=== PATIENT | female | born 1955 | race Caucasian/White ===

== ENCOUNTER 2020-02-17 16:26 | Emergency (ER) | payer OTHER, SELFPAY ==
[2020-02-17 17:30] VITALS: BP 109/78; PULSE 77; RESP 18; TEMP 36.6; O2SAT 98; BMI 30.2
--- NOTE | 2020-02-17 17:45 | HMH.EDUTC ---
[facility] [place] Clinical Impression: Encounter for laboratory testing for COVID-19 virus Disposition: Home, Self-Care Condition on Discharge: Good Instructions: DI for COVID-19 (Suspected or Confirmed ), Coronavirus Disease 2019, Preventing the Spread of Coronavirus Discharge Instructions Additional Instructions: *Monitor Temp, Over the counter Motrin or Tylenol as directed/as needed Tylenol every 4 hours and Motrin every 6 hours (as long as your family doctor has told you that you can take it) for fever or pain. and straight to ER if unable to lower temp less than 101.0 after medication given Follow up IMMEDIATELY for new or worsening symptoms or no Noticeable improvement over the next 48-72 hours. 911 for difficulty breathing or swallowing You were tested for today for COVID19 your test result should be back in the next 24-48 hours, you may call to the [facility] to see if your test results are back in the next 48 hours [phone] [facility] hours are 9am-9pm You was given a handout with instructions for Self Quarantine and Self isolation for while you wait on test results and what to do if they are positive If you are positive the Health Dept will be contacting you also Referrals: Salvador Barton MD [Primary Care Provider] - As needed Forms: Work/School Release Time of Disposition: 17:47 Medical Decision Making - Fredy Inquiry Pt receiving controlled substance: No Fredy was queried for this patient: No Vital Signs: 02/17/20 17:30 Temperature 97.8 F Temperature Source Oral Pulse Rate [Right Brachial] 77 Respiratory Rate 18 Blood Pressure [Right Arm] 109/78 L Blood Pressure Mean [Right Arm] 88 Blood Pressure Source [Right Arm] Automatic Cuff Blood Pressure Position [Right Arm] Sitting 02 Sat by Pulse Oximetry 98 Orders (Tests/Meds): ORDERS Category Date Time Status Covid-19 Nasal PCR ([facility]) Routine Lab 02/17/20 17:27 Ordered [facility] [place] HPI - General Stated complaint: cov test Time Seen by Provider: 02/17/20 17:45 Mode of Arrival: Ambulatory Limitations: No Limitations Description of Symptoms (Recalled from Triage Doc. by RN): COVID TEST D/T EXPOSURE; DENIES SYMPTOMS HEENT Symptoms (Recalled from RN notes): No Resp Symptoms (Recalled from RN notes): No Skin Symptoms (Recalled from RN notes): No MS Symptoms (Recalled from RN notes): No Functional Status (Recalled from RN notes): WNL - History of Present Illness Provider Complaint: Patient states that she was around her son last week that tested positive yesterday for COVID States that she isnt having any symptoms but due to close exposure she wanted to get tested - Related Data Home Medications Medication Instructions Recorded Confirmed No Known Home Medications 03/22/17 03/22/17 Allergies Allergy/AdvReac Type Severity Reaction Status Date / Time Penicillins Allergy Verified 02/17/20 17:44 Sulfa (Sulfonamide Allergy Verified 02/17/20 17:44 Antibiotics) - Worker's Comp Is this a Worker's Comp case?: No [facility] History - Hepatitis A Screen Drug use history?: No High risk sexual behaviors?: No History of sexually transmitted infection?: No Currently employed?: No Childcare worker?: No Do you have indoor plumbing?: Yes Do you have electricity?: Yes Attestation statement:: This patient has been screened for Hepatitis A risk factors. I have reviewed the patient's past medical history: Yes Laterality Cases: Bilateral: Tonsillectomy Other Surgeries: Yes: Tubal Ligation - Social History Smoking Status: Never smoker Alcohol Intake: never Occupational Status: other Family Hx:: Coronary Artery Disease, Heart Attack, Diabetes ROS Obtained: Yes All systems reviewed & no additional complaints, Yes Systems reviewed as appropriate & no additional complaints - Constitutional Constitutional: Reports system reviewed and no additional complaints, except as docu, Denies body ache, Denies chills, Denies daytime sleepiness, Denies feve
[2020-02-17 17:54] VITALS: BP 109/78; PULSE 77; RESP 18; TEMP 36.6; O2SAT 98
== END 2020-02-17 17:55 | disposition home or self-care (01) ==
PROVIDERS: Emergency Provider Nurse Practitioner; PCP Family Medicine
DX: Z88.0 Allergy status to penicillin; Z88.2 Allergy status to sulfonamides; Z20.828 Contact with and (suspected) exposure to other viral communicable diseases
CPT/HCPCS: 99202; G0463; U0003

== ENCOUNTER → 2020-10-27 09:53 | Outpatient (POV) | payer OTHER, SELFPAY | PROVIDERS: Visit Provider Dermatology | DX: Z00.00 Encounter for general adult medical examination without abnormal findings (principal) ==

== ENCOUNTER → 2021-01-15 09:19 | Outpatient (CLI) | payer OTHER, SELFPAY | PROVIDERS: Visit Provider Ophthalmology | DX: Z01.812 Encounter for preprocedural laboratory examination (principal); Z20.822 Contact with and (suspected) exposure to COVID-19 | CPT/HCPCS: C9803; U0003; U0005 ==

== ENCOUNTER 2024-07-15 16:33 | Observation (INO) | payer MEDICARE, SELFPAY ==
[2024-07-15] VITALS (8 sets, daily range): BP systolic 150–187; BP diastolic 76–92; PULSE 64–95; RESP 14–22; TEMP 36.3–37.8; O2SAT 94–99; BMI 29.2; BMI 35.9
--- NOTE | 2024-07-15 16:48 | HMH.EDGENADL ---
Discharge Plan Disposition Patient Disposition: Admitted Condition: Good Clinical Impressions Clinical Impression: Sepsis without septic shock, Enteritis, Urinary tract infection in female Discharge ED Provider: José Antonio Crockett Adult HPI <AYESHA Gao - Last Filed: 07/15/24 20:22> General Chief complaint: Weakness Stated complaint: unstead gait,back pain,diarrhea,stomach pain Time Seen by Provider: 07/15/24 16:48 History of Present Illness HPI narrative: Patient presents for evaluation of of 3 days of nausea vomiting diarrhea. Patient states that she has had tender posterior count watery bowel movements along with abdominal pain she describes as cramping and today has had difficulty with walking. She denies any chest pain shortness of breath fever chills hemoptysis hematochezia melena hematemesis hematuria. She denies any flank pain or back pain.. Related Data Home Medications ?Medication ?Instructions ?Recorded ?Confirmed No Known Home Medications 03/22/17 07/15/24 Allergies Allergy/AdvReac Type Severity Reaction Status Date / Time Penicillins Allergy Verified 07/15/24 15:56 Sulfa (Sulfonamide Allergy Verified 07/15/24 15:56 Antibiotics) PFSH <AYESHA Gao - Last Filed: 07/15/24 20:22> [facility] Disclaimer: The information contained in this section may have been updated after the patient was seen, as this information can be updated by other users. Medical History (Updated 07/15/24 @ 22:55 by Johan Marcelo APRN) Encounter for laboratory testing for COVID-19 virus Prediabetes Skin cancer Surgical History (Updated 07/15/24 @ 22:42 by Johan Marcelo APRN) H/O oophorectomy Hx of tonsillectomy Social History Smoking Status: Former smoker alcohol intake: never current occupational status: other Travel in the last 8 weeks?: None Have you lived/traveled outside [place] in past 30 days?: No Contact w/someone who lives/traveled outside US past 30 days?: No Exposure to someone with infectious disease in past 14 days?: No Do you have a fever (greater than 100.4 F or 38 C)?: No Have you tested positive for COVID-19?: No Exposed to someone with COVID-19 in past 14 days?: No Do you have a sore throat?: No Do you have a cough?: No Do you have any weakness?: No Do you have any diarrhea?: No Are you experiencing any unusual bleeding?: No Do you have any muscle aches/pain?: No Do you have any abdominal pain?: No Are you experiencing loss of taste or smell?: No Other Medical History Have you received the Flu Vaccine for this season: No <AYESHA Gao - Last Filed: 07/15/24 20:22> ROS Obtained: Yes Systems reviewed as appropriate & no additional complaints except as documented Physical Exam <AYESHA Gao - Last Filed: 07/15/24 20:22> General General appearance: alert and in no apparent distress Respiratory Respiratory exam: Present normal lung sounds bilaterally Cardiovascular Cardiovascular exam: Present regular rate Neurological Exam Neurological exam: Present alert and oriented X3 Medical Decision Making <AYESHA Gao - Last Filed: 07/15/24 20:22> Medical Records Medical records reviewed: Yes I reviewed the patient's medical records. Screening: Per USPSTF and CDC recommendations, given the prevalence of disease in our region, it is our hospital?s policy to screen for HIV and viral Hepatitis for all patients aged 18 and over and those with ongoing risk factors. Fredy Inquiry Pt receiving controlled substance: No Vital Signs: 07/15/24 16:56 07/15/24 17:02 07/15/24 18:30 Temperature 100.0 F H Temperature Source Oral Pulse Rate 88 78 Pulse Rate [Left Radial] 95 H Respiratory Rate 19 21 22 Blood Pressure 183/92 H 166/80 H Blood Pressure [Right Arm] 187/89 H Blood Pressure Mean [Right Arm] 121 02 Sat by Pulse Oximetry 97 96 96 Oxygen Delivery Method Room Air Room Air 07/15/24 19:15 07/15/24 20:31 07/15/24 21:12 Temperature 97.6 F Temperature Source Oral Pulse Rate 74 68 68 Pulse Rate [Left Radial] Respiratory Rate 20 17 14 Blood Pressure 173/88 H 163/76 H Blood Pressure [Right Arm] Blood Pressure Mean [Right Arm] 02 Sat by Pulse Oximetry 94 L 97 Oxygen Delivery Method Room Air 07/15/24 21:13 Temperature 97.8 F Temperature Source Oral Pulse Rate 64 Pulse Rate [Left Radial] Respiratory Rate 18 Blood Pressure 163/76 H Blood Pressure [Right Arm] Blood Pressure Mean [Right Arm] 02 Sat by Pulse Oximetry Oxygen Delivery Method Room Air Lab Data Lab results reviewed: Yes I reviewed the patient's lab results. Lab Results 07/15/24 17:31: WBC 15.5 H, RBC 4.03 L, Hgb 12.4, Hct 37.2, MCV 92.3, MCH 30.8, MCHC 33.3, RDW 13.6, Plt Count 251, MPV 10.8 H, Neut % (Auto) 89.6 H, Lymph % (Auto) 4.4 L, Taliaferro % (Auto) 3.8, Eos % (Auto) 0.6, Baso % (Auto) 0.4, Neut # (Auto) 13.9 H, Lymph # (Auto) 0.7, Taliaferro # (Auto) 0.6, Eos # (Auto) 0.1, Baso # (Auto) 0.1, ESR 56 H, Sodium 134 L, Potassium 3.2 L, Chloride 102, Carbon Dioxide 17 L, Anion Gap 18.2 H, BUN 24 H, Creatinine 1.30 H, Estimated Creat Clear 46, Estimated GFR 41 L, Est GFR ( Amer) 49 L, Glucose 124 H, Lactate 1.5, Calcium 9.5, Magnesium 2.1, Total Bilirubin 0.8, AST 46 H, ALT 33, Alkaline Phosphatase 70, C-Reactive Protein 426.6 H, Total Protein 8.2, Albumin 4.3, Globulin 3.9 H, Albumin/Globulin Ratio 1.1, Lipase 53, Procalcitonin 6.55 H, HCV Ab JOESPH w/Rflx PCR Qn Negative, HIV Ag/Ab Combo Qual Negative 07/15/24 19:37: Urine Color Yellow, Urine Appearance Slightly cloudy, Urine pH 6.0, Ur Specific [place] 1.020, Urine Protein 2+ A, Urine Glucose (UA) Negative, Urine Ketones 1+, Urine Blood 2+ A, Urine Nitrate Negative, Urine Bilirubin Negative, Urine Urobilinogen 0.2, Ur Leukocyte Esterase Negative, Urine RBC 5-10, Urine WBC 5-10, Ur Squamous Epith Cells 20-50, Amorphous Sediment 2+, Urine Bacteria 4+ 07/15/24 17:31 07/15/24 17:31 Orders (Tests/Meds): ED MEDICATIONS Generic Name Dose Route Start Last Admin Trade Name Freq PRN Reason Stop Dose Admin Acetaminophen 650 mg 07/15/24 20:55 Acetaminophen 325mg Tab PO 08/14/24 20:54 Q4HP PRN Fever or Mild Pain (1-3) Bismuth Subsalicylate 2 each 07/15/24 23:00 Bismuth Subsalicylate 262mg Tab PO 08/14/24 22:59 Q1HP PRN Diarrhea Ceftriaxone Sodium 1 gm/ 50 mls @ 100 mls/hr 07/15/24 20:30 07/15/24 20:33 Sodium Chloride IV 07/25/24 20:29 100 mls/hr Q24H CARLA Administration Lactated Ringer's 1,000 mls @ 125 mls/hr 07/15/24 21:00 07/15/24 21:53 Lactated Ringer's 1000 Ml Bag IV 08/14/24 20:59 125 mls/hr .Q8H CARLA Administration Levofloxacin 250 mg 07/15/24 23:00 07/15/24 23:37 Levofloxacin 250mg Tab PO 07/17/24 22:59 250 mg 1100 CARLA Administration Ondansetron HCl 4 mg 07/15/24 20:55 Ondansetron 4mg/2ml Vial IV 08/14/24 20:54 Q8HP PRN Nausea Pantoprazole Sodium 40 mg 07/15/24 21:00 07/15/24 21:53 Pantoprazole 40mg Tablet PO 08/14/24 20:59 40 mg HS CARLA Administration Sodium Chloride 10 ml 07/15/24 20:55 Sodium Chloride 0.9% 10ml Flush Syringe IV 08/14/24 20:54 NEEDED PRN Maintain IV Site Discontinued Medications Generic Name Dose Route Start Last Admin Trade Name Freq PRN Reason Stop Dose Admin Acetaminophen 1,000 mg 07/15/24 17:16 07/15/24 17:30 Acetaminophen 1,000mg/100ml Vial IV 07/15/24 17:17 1,000 mg ONCE ONE Administration Sodium Chloride 1,000 mls @ 999 mls/hr 07/15/24 17:16 07/15/24 17:31 Sod Chlor 0.9% 1000ml Bag IV 07/15/24 18:16 999 mls/hr .Q1H1M ONE Administration Sodium Chloride 1,000 mls @ 999 mls/hr 07/15/24 20:18 07/15/24 20:33 Sod Chlor 0.9% 1000ml Bag IV 07/15/24 21:18 999 mls/hr .Q1H1M ONE Administration Iopamidol 75 ml 07/15/24 18:16 07/15/24 18:16 Iopamidol-370 (76%);100ml Bottle IV 07/15/24 18:17 75 ml ONCE ONE Administration Ketorolac Tromethamine 15 mg 07/15/24 17:16 07/15/24 17:30 Ketorolac 30mg/Ml Vial IV 07/15/24 17:17 15 mg ONCE ONE Administration Ondansetron HCl 4 mg 07/15/24 17:16 07/15/24 17:31 Ondansetron 4mg/2ml Vial IV 07/15/24 17:17 4 mg ONCE ONE Administration Sodium Chloride 10 ml 07/15/24 18:16 07/15/24 18:16 Sodium Chloride 0.9% 10ml Syr (Rad Only) IV 07/15/24 18:17 10 ml ONCE ONE Administration ORDERS Category Date Time Status CT abdomen pelvis w con Stat Cat Scan 07/15/24 17:16 Completed CBC w/Auto Diff [Complete Blood Count Auto Diff] Stat Lab 07/15/24 17:31 Completed CMP [Comprehensive Metabolic Panel] Stat Lab 07/15/24 17:31 Completed CRP [C-Reactive Protein] Stat Lab 07/15/24 17:31 Completed Complete Blood Count Auto Diff AMLAB Lab 07/16/24 06:00 Ordered Comprehensive Metabolic Panel AMLAB Lab 07/16/24 06:00 Ordered Diarrhea 23 Panel, PCR Stat Lab 07/15/24 17:16 Ordered ESR [Erythrocyte Sedimentation Rate] Stat Lab 07/15/24 17:31 Completed HIV Combo Stat Lab 07/15/24 17:31 Completed Hepatitis C Ab Qual. W/ RFX Stat Lab 07/15/24 17:31 Completed Lactic Acid AMLAB Lab 07/16/24 06:00 Ordered Lactic Acid Stat Lab 07/15/24 17:31 Completed Lipase Stat Lab 07/15/24 17:31 Completed Magnesium AMLAB Lab 07/16/24 06:00 Ordered Magnesium Stat Lab 07/15/24 17:31 Completed Procalcitonin Stat Lab 07/15/24 17:31 Completed UA [Urinalysis and Microscopic] Stat Lab 07/15/24 19:37 Completed Blood Culture Stat Micro 07/15/24 20:30 Received Urine Culture Stat Micro 07/15/24 19:37 Received Tissue Perfus/Sepsis Re-Eval Sepsis Re-Evaluation Performed: Yes Date Performed: 07/15/24 Time Performed: 19:51 Medical Decision Narrative: In summary patient is a 69-year-old female who presents to the emergency department for evaluation of nausea vomiting and abdominal pain. Patient is initially hypertensive with a blood pressure 187/89 with a heart rate of 95 sinus rhythm on the bedside monitor breathing 19 times a minute satting at 97% on room air upon arrival, with a temperature of 100. Physical exam reveals a well-nourished well-developed 69-year-old female who otherwise in no acute distress. Breath sounds critical bilateral to the bases without adventitious sounds. Cardiovascular is S1-S2 rapid regular rate rhythm without murmurs, rubs or thrills. Abdomen soft diffusely mildly tender to palpation with no rebound or guarding or rigidity. Bowel sounds hyperactive. Patient has no CVA tenderness to percussion.. Differential diagnosis includes enteritis versus electrolyte abnormality versus colitis versus diverticulitis etc. Initial workup will be conducted with hematologic labs urine diarrhea panel CT scan abdomen pelvis. Initial interventions include crystalloid bolus Toradol Tylenol and Zofran. Initial workup reviewed by me patient has a white count of 15.5 hemoglobin hematocrit 12.4 and 37.2 respectively with an absolute neutrophil count of 13.9 sed rate is 56, sodium 134 potassium is 3.2 CO2 is 17 gap is 18.2 BUN is 24 creatinine is 1.3 GFR is 41 AST is 46 CRP is 426.6 procalcitonin is 6.55 and my informal interpretation of her CT scan abdomen pelvis shows hydroureter at the proximal right kidney and fluid-filled small bowel consistent with enteritis prior to radiology read. Urinalysis is consistent with a urinary tract infection with 5-10 red blood cells 5-10 white cells 20-50 epithelial cells and 4+ bacteria. Given her findings I am concern for urosepsis without septic shock. She was given an additional fluid bolus for the sepsis as well as blood cultures and started on Rocephin IV. Given this I had an interactive discussion with hospital medicine regarding patient workup and management and she will be admitted for further evaluation and care <José Antonio Crockett MD - Last Filed: 07/15/24 23:44> Vital Signs: 07/15/24 16:56 07/15/24 17:02 07/15/24 18:30 Temperature 100.0 F H Temperature Source Oral Pulse Rate 88 78 Pulse Rate [Left Radial] 95 H Respiratory Rate 19 21 22 Blood Pressure 183/92 H 166/80 H Blood Pressure [Right Arm] 187/89 H Blood Pressure Mean [Right Arm] 121 02 Sat by Pulse Oximetry 97 96 96 Oxygen Delivery Method Room Air Room Air 07/15/24 19:15 07/15/24 20:31 07/15/24 21:12 Temperature 97.6 F Temperature Source Oral Pulse Rate 74 68 68 Pulse Rate [Left Radial] Respiratory Rate 20 17 14 Blood Pressure 173/88 H 163/76 H Blood Pressure [Right Arm] Blood Pressure Mean [Right Arm] 02 Sat by Pulse Oximetry 94 L 97 Oxygen Delivery Method Room Air 07/15/24 21:13 Temperature 97.8 F Temperature Source Oral Pulse Rate 64 Pulse Rate [Left Radial] Respiratory Rate 18 Blood Pressure 163/76 H Blood Pressure [Right Arm] Blood Pressure Mean [Right Arm] 02 Sat by Pulse Oximetry Oxygen Delivery Method Room Air Lab Data Lab Results 07/15/24 17:31: WBC 15.5 H, RBC 4.03 L, Hgb 12.4, Hct 37.2, MCV 92.3, MCH 30.8, MCHC 33.3, RDW 13.6, Plt Count 251, MPV 10.8 H, Neut % (Auto) 89.6 H, Lymph % (Auto) 4.4 L, Taliaferro % (Auto) 3.8, Eos % (Auto) 0.6, Baso % (Auto) 0.4, Neut # (Auto) 13.9 H, Lymph # (Auto) 0.7, Taliaferro # (Auto) 0.6, Eos # (Auto) 0.1, Baso # (Auto) 0.1, ESR 56 H, Sodium 134 L, Potassium 3.2 L, Chloride 102, Carbon Dioxide 17 L, Anion Gap 18.2 H, BUN 24 H, Creatinine 1.30 H, Estimated Creat Clear 46, Estimated GFR 41 L, Est GFR ( Amer) 49 L, Glucose 124 H, Lactate 1.5, Calcium 9.5, Magnesium 2.1, Total Bilirubin 0.8, AST 46 H, ALT 33, Alkaline Phosphatase 70, C-Reactive Protein 426.6 H, Total Protein 8.2, Albumin 4.3, Globulin 3.9 H, Albumin/Globulin Ratio 1.1, Lipase 53, Procalcitonin 6.55 H, HCV Ab JOESPH w/Rflx PCR Qn Negative, HIV Ag/Ab Combo Qual Negative 07/15/24 19:37: Urine Color Yellow, Urine Appearance Slightly cloudy, Urine pH 6.0, Ur Specific [place] 1.020, Urine Protein 2+ A, Urine Glucose (UA) Negative, Urine Ketones 1+, Urine Blood 2+ A, Urine Nitrate Negative, Urine Bilirubin Negative, Urine Urobilinogen 0.2, Ur Leukocyte Esterase Negative, Urine RBC 5-10, Urine WBC 5-10, Ur Squamous Epith Cells 20-50, Amorphous Sediment 2+, Urine Bacteria 4+ Orders (Tests/Meds): ED MEDICATIONS Generic Name Dose Route Start Last Admin Trade Name Freq PRN Reason Stop Dose Admin Acetaminophen 650 mg 07/15/24 20:55 Acetaminophen 325mg Tab PO 08/14/24 20:54 Q4HP PRN Fever or Mild Pain (1-3) Bismuth Subsalicylate 2 each 07/15/24 23:00 Bismuth Subsalicylate 262mg Tab PO 08/14/24 22:59 Q1HP PRN Diarrhea Ceftriaxone Sodium 1 gm/ 50 mls @ 100 mls/hr 07/15/24 20:30 07/15/24 20:33 Sodium Chloride IV 07/25/24 20:29 100 mls/hr Q24H CARLA Administration Lactated Ringer's 1,000 mls @ 125 mls/hr 07/15/24 21:00 07/15/24 21:53 Lactated Ringer's 1000 Ml Bag IV 08/14/24 20:59 125 mls/hr .Q8H CARLA Administration Levofloxacin 250 mg 07/15/24 23:00 07/15/24 23:37 Levofloxacin 250mg Tab PO 07/17/24 22:59 250 mg 1100 CARLA Administration Ondansetron HCl 4 mg 07/15/24 20:55 Ondansetron 4mg/2ml Vial IV 08/14/24 20:54 Q8HP PRN Nausea Pantoprazole Sodium 40 mg 07/15/24 21:00 07/15/24 21:53 Pantoprazole 40mg Tablet PO 08/14/24 20:59 40 mg HS CARLA Administration Sodium Chloride 10 ml 07/15/24 20:55 Sodium Chloride 0.9% 10ml Flush Syringe IV 08/14/24 20:54 NEEDED PRN Maintain IV Site Discontinued Medications Generic Name Dose Route Start Last Admin Trade Name Kathia PRN Reason Stop Dose Admin Acetaminophen 1,000 mg 07/15/24 17:16 07/15/24 17:30 Acetaminophen 1,000mg/100ml Vial IV 07/15/24 17:17 1,000 mg ONCE ONE Administration Sodium Chloride 1,000 mls @ 999 mls/hr 07/15/24 17:16 07/15/24 17:31 Sod Chlor 0.9% 1000ml Bag IV 07/15/24 18:16 999 mls/hr .Q1H1M ONE Administration Sodium Chloride 1,000 mls @ 999 mls/hr 07/15/24 20:18 07/15/24 20:33 Sod Chlor 0.9% 1000ml Bag IV 07/15/24 21:18 999 mls/hr .Q1H1M ONE Administration Iopamidol 75 ml 07/15/24 18:16 07/15/24 18:16 Iopamidol-370 (76%);100ml Bottle IV 07/15/24 18:17 75 ml ONCE ONE Administration Ketorolac Tromethamine 15 mg 07/15/24 17:16 07/15/24 17:30 Ketorolac 30mg/Ml Vial IV 07/15/24 17:17 15 mg ONCE ONE Administration Ondansetron HCl 4 mg 07/15/24 17:16 07/15/24 17:31 Ondansetron 4mg/2ml Vial IV 07/15/24 17:17 4 mg ONCE ONE Administration Sodium Chloride 10 ml 07/15/24 18:16 07/15/24 18:16 Sodium Chloride 0.9% 10ml Syr (Rad Only) IV 07/15/24 18:17 10 ml ONCE ONE Administration ORDERS Category Date Time Status CT abdomen pelvis w con Stat Cat Scan 07/15/24 17:16 Completed CBC w/Auto Diff [Complete Blood Count Auto Diff] Stat Lab 07/15/24 17:31 Completed CMP [Comprehensive Metabolic Panel] Stat Lab 07/15/24 17:31 Completed CRP [C-Reactive Protein] Stat Lab 07/15/24 17:31 Completed Complete Blood Count Auto Diff AMLAB Lab 07/16/24 06:00 Ordered Comprehensive Metabolic Panel AMLAB Lab 07/16/24 06:00 Ordered Diarrhea 23 Panel, PCR Stat Lab 07/15/24 17:16 Ordered ESR [Erythrocyte Sedimentation Rate] Stat Lab 07/15/24 17:31 Completed HIV Combo Stat Lab 07/15/24 17:31 Completed Hepatitis C Ab Qual. W/ RFX Stat Lab 07/15/24 17:31 Completed Lactic Acid AMLAB Lab 07/16/24 06:00 Ordered Lactic Acid Stat Lab 07/15/24 17:31 Completed Lipase Stat Lab 07/15/24 17:31 Completed Magnesium AMLAB Lab 07/16/24 06:00 Ordered Magnesium Stat Lab 07/15/24 17:31 Completed Procalcitonin Stat Lab 07/15/24 17:31 Completed UA [Urinalysis and Microscopic] Stat Lab 07/15/24 19:37 Completed Blood Culture Stat Micro 07/15/24 20:30 Received Urine Culture Stat Micro 07/15/24 19:37 Received Medical Decision Narrative: In summary patient is a 69-year-old female who presents to the emergency department for evaluation of nausea vomiting and abdominal pain. Patient is initially hypertensive with a blood pressure 187/89 with a heart rate of 95 sinus rhythm on the bedside monitor breathing 19 times a minute satting at 97% on room air upon arrival, with a temperature of 100. Physical exam reveals a well-nourished well-developed 69-year-old female who otherwise in no acute distress. Breath sounds critical bilateral to the bases without adventitious sounds. Cardiovascular is S1-S2 rapid regular rate rhythm without murmurs, rubs or thrills. Abdomen soft diffusely mildly tender to palpation with no rebound or guarding or rigidity. Bowel sounds hyperactive. Patient has no CVA tenderness to percussion.. Differential diagnosis includes enteritis versus electrolyte abnormality versus colitis versus diverticulitis etc. Initial workup will be conducted with hematologic labs urine diarrhea panel CT scan abdomen pelvis. Initial interventions include crystalloid bolus Toradol Tylenol and Zofran. Initial workup reviewed by me patient has a white count of 15.5 hemoglobin hematocrit 12.4 and 37.2 respectively with an absolute neutrophil count of 13.9 sed rate is 56, sodium 134 potassium is 3.2 CO2 is 17 gap is 18.2 BUN is 24 creatinine is 1.3 GFR is 41 AST is 46 CRP is 426.6 procalcitonin is 6.55 and my informal interpretation of her CT scan abdomen pelvis shows hydroureter at the proximal right kidney and fluid-filled small bowel consistent with enteritis prior to radiology read. Urinalysis is consistent with a urinary tract infection with 5-10 red blood cells 5-10 white cells 20-50 epithelial cells and 4+ bacteria. Given her findings I am concern for urosepsis without septic shock. She was given an additional fluid bolus for the sepsis as well as blood cultures and started on Rocephin IV. Given this I had an interactive discussion with hospital medicine regarding patient workup and management and she will be admitted for further evaluation and care I was consulted by the MARCIAL, and we discussed the complexity of the problems being addressed.I approved the treatment and management plan for this patient?s care in the Emergency Department, thus performing a substantive portion of the medical decision making.Signed, José Antonio Crockett MD [facility] <AYESHA Gao - Last Filed: 07/15/24 20:22> Critical Care Time Critical Care Time: Yes Attestation: On 07/15/24, the high probability of a clinically significant, sudden or life threatening deterioration of the following system(s) required my full and direct attention, intervention and personal management. The time I documented below is in addition to time spent performing reported procedures but includes the following listed in this critical care notation. Total Time Total Critical Care Time: 30
--- OUTSIDE RECORDS SUMMARY | 2024-07-15 16:53 | XMS_ITS ---
Author Organization Unknown Patient Care team information Name Category Status Period Participants - - Proposed period not known - Insurance Providers Payer name Policy type / Covera ge type Policy ID Covered republican ID Policy [place] [employer] [place] [employer]
--- NOTE | 2024-07-15 16:54 | ECG_ITS ---
APPROVED REPORT Exam: Resting ECG HR:92 bpm ECG Measurements Heart Rate 92 AXES AK 147 P 41 QRSd 104 QRS -13 QT 310 T 18 QTc 359 Conclusion SINUS RHYTHM WITH OCCASIONAL VENTRICULAR PREMATURE COMPLEXES POSSIBLE LEFT ATRIAL ENLARGEMENT [-0.1mV P-WAVE IN V1/V2] MODERATE ST DEPRESSION [0.05+ mV ST DEPRESSION] ABNORMAL ECG Electronically signed by : MAURICIO ESTRADA, 07/15/2024 23:32:13
--- NOTE | 2024-07-15 17:16 | CT_ITS ---
PROCEDURE INFORMATION: Exam: CT Abdomen And Pelvis With Contrast Exam date and time: 07/15/2024 6:15 PM Age: 69 years old Clinical indication: Abdominal pain; Additional info: Nvd abd pain TECHNIQUE: Imaging protocol: Computed tomography of the abdomen and pelvis with contrast. Total images: 310 Radiation optimization: All CT scans at this facility use at least one of these dose optimization techniques: automated exposure control; mA and/or kV adjustment per patient size (includes targeted exams where dose is matched to clinical indication); or iterative reconstruction. Contrast material: ISOVUE; Contrast volume: 75 ml; Contrast route: IV; COMPARISON: No relevant prior studies available. FINDINGS: Lungs: Lung bases are clear. Pleural spaces: Trace left pleural fluid. Heart: Normal heart size. Liver: Normal. No mass. Gallbladder and biliary ducts: Nonspecific gallbladder wall thickening with probable noncalcified gallstones. No pericholecystic edema. No biliary ductal dilatation. Pancreas: Normal. No ductal dilation. Spleen: Normal. No splenomegaly. Adrenal glands: Normal. No mass. Kidneys and ureters: 4 mm right intrarenal calculus with directly overlying cortical scarring. No hydronephrosis, perinephric fluid, or renal mass. Mild right renal pelviectasis is presumed physiologic. No ureteral stones. Unremarkable left kidney and left ureter. Stomach and bowel: Unremarkable stomach and duodenum. No ileus or bowel obstruction. Question mild bowel wall thickening referable to proximal loops of jejunum. Shallow air-fluid levels nondilated distal small bowel. Shallow scattered colonic air-fluid levels. No significant colonic wall thickening. Mild sigmoid diverticulosis without diverticulitis. Unremarkable rectum. Appendix: No evidence for appendicitis. Intraperitoneal space: Unremarkable. No free air. No significant fluid collection. Vasculature: Mild atherosclerotic vascular disease. Nonaneurysmal abdominal aorta. Numerous pelvic phleboliths. Lymph nodes: Unremarkable. No enlarged lymph nodes. Urinary bladder: Partially collapsed bladder. Reproductive: Atrophic uterus. No adnexal mass. Bones/joints: Age indeterminate but likely nonacute anterior wedging and superior endplate depression at L4. Scattered mild degenerative changes of the thoracolumbar spine. Minor lumbar levocurvature. No acute osseous abnormality. Soft tissues: Prominent varicosities anterior pelvic wall. Very tiny fat containing umbilical hernia. Notes: Mild motion limited exam with image blurring. IMPRESSION: 1. Suspect acute nonspecific enteritis. No ileus or bowel obstruction. 2. Shallow colonic air-fluid levels throughout implying diarrheal state. No convincing evidence for active colitis. 3. Mild sigmoid diverticulosis. 4. Nonspecific gallbladder wall thickening with probable noncalcified gallstones. No pericholecystic edema. If referable symptoms, follow-up ultrasound. 5. Trace left pleural fluid. 6. 4 mm nonobstructing right intrarenal calculus. 7. Additional chronic and incidental findings.
[2024-07-15] MEDS: ACETAMINOPHEN 1,000MG/100ML VIAL 1000 MG IV (17:30)
[2024-07-15] MEDS: KETOROLAC 30MG/ML VIAL 15 MG IV (17:30)
[2024-07-15] MEDS: 0.9 % SODIUM CHLORIDE 1000ML 1,000 ML 999 ML IV ×2 (17:31→20:33)
[2024-07-15] MEDS: ONDANSETRON 4MG/2ML VIAL 4 MG IV (17:31)
[2024-07-15 17:40] LABS: Basophils # 0.1 K/mm3 (0-0.2); Basophils % 0.4 % (0.1-2.0); Eosinophils # 0.1 Kmm3 (0.0-0.4); Eosinophils % 0.6 % (0.1-12.0); Hematocrit 37.2 % (37.0-47.0); Hemoglobin 12.4 g/dL (12.2-16.2); Immature Granulocytes # 0.19 10^3uL; Immature Granulocytes % 1.2 %; Lymphocytes # 0.7 K/mm3 (0.7-4.5); Lymphocytes % 4.4 % (10-50); Mean Corpuscular HGB Conc 33.3 g/dL (31.8-35.4); Mean Corpuscular Hemoglobin 30.8 pg (27.0-31.2); Mean Corpuscular Volume 92.3 fl (81-99); Mean Platelet Volume 10.8 fl (7.4-10.4); Monocytes # 0.6 K/mm3 (0.1-1.0); Monocytes % 3.8 % (1.7-9.3); Neutrophils # 13.9 K/mm3 (1.8-7.8); Neutrophils % 89.6 % (37.0-80.0); Nucleated Red Blood Cells # 0 10^3/uL; Nucleated Red Blood Cells % 0 %; Platelet Count 251 K/mm3 (142-424); Red Blood Count 4.03 M/mm3 (4.20-5.40); Red Cell Distribution Width 13.6 % (11.5-17.5); Red Cell Distribution Width-SD 46.4 fL; White Blood Count 15.5 K/mm3 (4.8-10.8)
[2024-07-15 17:50] LABS: Alanine Aminotransferase 33 U/L (12-78); Albumin Level 4.3 g/dl (3.5-5.0); Albumin/Globulin Ratio 1.1 (1.1-1.8); Alkaline Phosphatase 70 U/L (38-126); Anion Gap 18.2 mEq/L (5-15); Aspartate Amino Transferase 46 U/L (14-36); Bilirubin,Total 0.8 mg/dl (0.2-1.3); Blood Urea Nitrogen 24 mg/dl (7-17); Calcium 9.5 mg/dl (8.4-10.2); Carbon Dioxide 17 mmol/L (22.0-30.0); Chloride 102 mmol/L (98-107); Creatinine Clearance Estimated 46 mL/min (50-200); Estimated Glomerular Filt Rate 41 ml/min (>60); GFR (African American) 49 ML/MIN (>60); Globulin 3.9 g/dL (1.3-3.2); Glucose 124 mg/dl (74-100); Lipase 53 U/L (23-300); Magnesium 2.1 mg/dl (1.6-2.3); Potassium 3.2 mmoL/L (3.5-5.1); Sodium 134 mmol/L (136-145); Total Protein,Serum 8.2 g/dl (6.3-8.2)
[2024-07-15 17:55] LABS: Lactic Acid 1.5 mmol/L (0.7-2.1)
[2024-07-15 18:09] LABS: Procalcitonin 6.55 ng/mL (0.0-2.0)
[2024-07-15 18:10] LABS: Erythrocyte Sedimentation Rate 56 mm/hr (0-30)
[2024-07-15 18:11] LABS: C-Reactive Protein 426.6 mg/L (0-4)
--- NOTE | 2024-07-15 18:11 | PC.NURSE ---
pt going for CT at this time
[2024-07-15] MEDS: IOPAMIDOL-370 (76%);100ML BOTTLE 75 ML IV (18:16)
[2024-07-15] MEDS: SODIUM CHLORIDE 0.9% 10ML SYR (RAD ONLY) 10 ML IV (18:16)
[2024-07-15 18:41] LABS: HIV Combo NEGATIVE (Negative)
[2024-07-15 18:49] LABS: Hepatitis C Ab Qual. W/ RFX NEGATIVE (Negative)
[2024-07-15 19:43] LABS: Blood, Urine 2+ (Negative); Color,Urine YELLOW (Yellow); Glucose,Urine (UA) Negative (Negative); Ketones,Urine 1+ (Negative); Leukocyte Esterase,Urine Negative (Negative); Microscopic, Urine URINE MICROSCOPIC (MICROSCOPIC); Nitrate,Urine Negative (Negative); Protein,Urine 2+ (Negative); Urobilinogen,Urine 0.2 EU/dl (0.2)
[2024-07-15 19:55] LABS: Appearance,Urine Slightly Cloudy (Clear); Bilirubin,Urine Negative (Negative)
[2024-07-15 20:11] LABS: Amorphous Sediment,Urine 2+ /lpf; Bacteria,Urine 4+ /lpf; Squamous Epithelial Cell,Urine 20-50 #/hpf (0-5)
[2024-07-15] MEDS: CEFTRIAXONE 1 GM 1 GM in 0.9 % SODIUM CHLORIDE 50 ML IV (20:33)
--- NOTE | 2024-07-15 21:10 | P.HP_ITS ---
<Statement entered by Tyson Strickland MD - 07/22/24 17:49> Personally evaluated the patient and agree with the plan of care as outlined by the [facility]. History of Present Illness *Admission Date: 07/15/24 *Reason for visit:: Nausea and vomiting for 3 days dehydration *History of present illness: This 69-year-old female who actually looks younger than her stated age, has been ill now for 3 days with watery diarrhea and some vomiting yesterday., Feeling very weak having trouble with walking at this time. Elevated white count, has not been able to give a diarrheal stool since being here so do not have a culture done yet. But patient appears awake alert oriented while laying in bed but on standing just is too weak to move so do not feel comfortable sending her at home until we get her fluid balance squared away. There is very little about her in her chart but per her has had no significant medical issues for quite some time. Medical history includes a tubal with the oophorectomy and removal of the tube on the right side as many years ago. In examining the CT of the abdomen the right kidney has a dilation of the ureter for at least 5 cm looks to be 2 to 3 cm at its largest point.(HYDRRETER), no other significant abdominal findings were noted At the present time believe this is simply infectious diarrhea but the patient has reached a point of not been able to stand well or walk well may need rehab hydration so IV fluids will be applied. Will add Pepto-Bismol and keep on clear liquid diet advanced as tolerated. Hopefully with improvement will have the patient home within 24 to 48 hours at the most. After talking with the ER provider patient showing signs of possible urinary tract infection elevated white count with weakness and unsteady gait back pain diarrhea and some abdominal pain. Also noting elevation in creatinine on labs. [facility] Disclaimer: The information contained in this section may have been updated after the patient was seen, as this information can be updated by other users. Medical History (Updated 07/15/24 @ 22:55 by Johan Marcelo APRN) Encounter for laboratory testing for COVID-19 virus Prediabetes Skin cancer Surgical History (Updated 07/15/24 @ 22:42 by Johan Marcelo APRN) H/O oophorectomy Hx of tonsillectomy Social History Smoking Status: Former smoker alcohol intake: never current occupational status: other Travel in the last 8 weeks?: None Have you lived/traveled outside [place] in past 30 days?: No Contact w/someone who lives/traveled outside [place] past 30 days?: No Exposure to someone with infectious disease in past 14 days?: No Do you have a fever (greater than 100.4 F or 38 C)?: No Have you tested positive for COVID-19?: No Exposed to someone with COVID-19 in past 14 days?: No Do you have a sore throat?: No Do you have a cough?: No Do you have any weakness?: No Do you have any diarrhea?: No Are you experiencing any unusual bleeding?: No Do you have any muscle aches/pain?: No Do you have any abdominal pain?: No Are you experiencing loss of taste or smell?: No Other Medical History Have you received the Flu Vaccine for this season: No Review of Systems Review of Systems Review of systems:: pertinent systems reviewed and negative unless documented below Constitutional Constitutional: Reports as per HPI, Reports body ache(s) and Reports poor appetite Eyes Eyes: Reports as per HPI ENT Ears, Nose, Mouth, and Throat: Reports as per HPI *Cardiovascular Cardiovascular: Reports as per HPI *Respiratory Respiratory: Reports as per HPI *Gastrointestinal Gastrointestinal: Reports as per HPI, Reports abdominal pain, Reports diarrhea, Reports fecal incontinence, Reports nausea and Reports vomiting Comments: Last vomited on Monday *Genitourinary Comments: Does not have painful urination Integumentary/Breasts Skin/Breast: Reports as per HPI *Neurologic Neurologic: Reports as per HPI Psychiatric Psychiatric: Reports as per HPI Endocrine Endocrine: Reports as per HPI Hematologic/Lymphatic Hematologic/Lymphatic: Reports as per HPI Allergic/Immunologic Allergic/Immunologic: Reports as per HPI Meds Home Medications and Allergies Home Medications ?Medication ?Instructions ?Recorded ?Confirmed ?Type No Known Home Medications 03/22/1704/09 History New Prescriptions to Start Prescriptions: Allergies Allergy/AdvReac Type Severity Reaction Status Date / Time Penicillins Allergy Verified 07/15/24 15:56 Sulfa (Sulfonamide Allergy Verified 07/15/24 15:56 Antibiotics) Exam Data for Last 24 hours Vital signs and Labs for Last 24 Hours: Temp Pulse Resp BP Pulse Ox O2 Del Method 100.0 F H 68 17 173/88 H 97 Room Air 07/15/24 16:56 07/15/24 20:31 07/15/24 20:31 07/15/24 19:15 07/15/24 20:31 07/15/24 18:30 Laboratory Results - last 24 hr 07/15/24 17:31: WBC 15.5 H, RBC 4.03 L, Hgb 12.4, Hct 37.2, MCV 92.3, MCH 30.8, MCHC 33.3, RDW 13.6, Plt Count 251, MPV 10.8 H, Neut % (Auto) 89.6 H, Lymph % (Auto) 4.4 L, [place] % (Auto) 3.8, Eos % (Auto) 0.6, Baso % (Auto) 0.4, Neut # (Auto) 13.9 H, Lymph # (Auto) 0.7, [place] # (Auto) 0.6, Eos # (Auto) 0.1, Baso # (Auto) 0.1, ESR 56 H, Sodium 134 L, Potassium 3.2 L, Chloride 102, Carbon Dioxide 17 L, Anion Gap 18.2 H, BUN 24 H, Creatinine 1.30 H, Estimated Creat Clear 46, Estimated GFR 41 L, Est GFR ( Amer) 49 L, Glucose 124 H, Lactate 1.5, Calcium 9.5, Magnesium 2.1, Total Bilirubin 0.8, AST 46 H, ALT 33, Alkaline Phosphatase 70, C-Reactive Protein 426.6 H, Total Protein 8.2, Albumin 4.3, Globulin 3.9 H, Albumin/Globulin Ratio 1.1, Lipase 53, Procalcitonin 6.55 H , HCV Ab JOESPH w/Rflx PCR Qn Negative, HIV Ag/Ab Combo Qual Negative 07/15/24 19:37: Urine Color Yellow, Urine Appearance Slightly cloudy, Urine pH 6.0, Ur Specific [place] 1.020, Urine Protein 2+ A, Urine Glucose (UA) Negative, Urine Ketones 1+, Urine Blood 2+ A, Urine Nitrate Negative, Urine Bilirubin Negative, Urine Urobilinogen 0.2, Ur Leukocyte Esterase Negative, Urine RBC 5- 10, Urine WBC 5-10, Ur Squamous Epith Cells 20-50, Amorphous Sediment 2+, Urine Bacteria 4+ I & O for Last 24 hours: Intake & Output 0507/14/24 07/15/24 07/16/24 05:59 05:59 05:59 05:59 Weight 155 lb Radiology Reports for the Last 24 Hours: Dilated right ureter near the kidney., Some calcification in the pelvic area question surgical staple related to oophorectomy due to tubal in the past. No signs of any blocked bowel Constitutional Constitutional: moderate distress, thin and cooperative *Routine HEENT Exam Head: Present normocephalic and atraumatic Eye: Present EOMI and PERRL ENT: Present mucous membranes moist *Routine Neck Exam Neck: Present supple *Routine Respiratory Exam Respiratory: Present CTA bilaterally, normal respiratory effort, able to speak in complete sentences and symmetric chest movement *Routine Cardiovascular Exam Cardiovascular: Present RRR, Normal S1 and Normal S2 *Routine Abdominal Exam Abdominal: Present soft and tenderness (Mild generalized tenderness) *Routine Rectal Exam Rectal:: deferred *Routine Genitalia Exam Genitalia:: deferred *Routine Extremities Exam Extremities: Present full ROM and normal capillary refill *Routine Skin Exam Skin: Present intact, dry and warm Comments: No rashes *Routine Neurological Exam Neurological: Present alert, oriented X3, CN II-XII intact, normal tone, vision grossly intact and hearing grossly intact Routine Psychiatric Exam Psychiatric: Present normal affect, normal thought process, cooperative, good insight and good judgment H&P: Result Impressions 1. Gastroparesis with weakness and dehydration Imaging and Cardiology CT scan - abdomen: Additional comments: Suspect acute nonspecific enteritis. No ileus or bowel obstruction. 2. Shallow colonic air-fluid levels throughout implying diarrheal state. No convincing evidence for active colitis. 3. Mild sigmoid diverticulosis. 4. Nonspecific gallbladder wall thickening with probable noncalcified gallstones. No pericholecystic edema. If referable symptoms, follow-up ultrasound. 5. Trace left pleural fluid. 6. 4 mm nonobstructing right intrarenal calculus. 7. Additional chronic and incidental findings. Assessment and Plan *Assessment and plan (1) Enteritis: Status: Acute Category: Medical Code(s): K52.9 - Noninfective gastroenteritis and colitis, unspecified (2) Nausea vomiting and diarrhea: Status: Acute Category: Medical Code(s): R11.2 - Nausea with vomiting, unspecified; R19.7 - Diarrhea, unspecified (3) Sepsis without septic shock: Status: Acute Category: Medical Code(s): A41.9 - Sepsis, unspecified organism (4) Dehydration: Status: Acute Category: Medical Code(s): E86.0 - Dehydration (5) Urinary tract infection in female: Status: Acute Category: Medical Code(s): N39.0 - Urinary tract infection, site not specified (6) Hydroureter on right: Status: Acute Category: Medical Code(s): N13.4 - Hydroureter Plan 1. With the patient still having significant watery diarrhea we will place her on the floor continue IV fluids start Pepto-Bismol p.o.. Have on clear liquid so willing to advance as the illness abates. At this time we will basically keep in bed to have assistance for standing and make sure that she is not lightheaded keep on clear liquids and advance as tolerated. Will also use 3 doses of p.o. Levaquin to treat any bacterial diarrheal component. Also due to the watery stool will give doses of Pepto-Bismol
--- NOTE | 2024-07-15 21:10 | PC.NURSE ---
Report given to Bradly ESPINOZA
--- NOTE | 2024-07-15 21:30 | PC.NURSE ---
Patient arrived to floor via wheelchair from ED at 21:19.
[2024-07-15] MEDS: LACTATED RINGERS 1000ML 1,000 ML 125 ML IV (21:53)
[2024-07-15] MEDS: PANTOPRAZOLE 40MG TABLET 40 MG PO (21:53)
[2024-07-16] VITALS: BP 143/84; PULSE 63; RESP 16; TEMP 36.6; O2SAT 98
[2024-07-16 04:00] VITALS: BP 155/88; PULSE 88; RESP 18; TEMP 36.9; O2SAT 98; BMI 36.5
[2024-07-16 04:39] LABS: Adenovirus F 40/41, stool Not Detected (NotDetected); Astrovirus Not Detected (NotDetected); Campylobacter Not Detected (NotDetected); Clostridium Difficile A/B, PCR Not Detected (NotDetected); Cryptosporidium Not Detected (NotDetected); Cyclospora Cayetanesis Not Detected (NotDetected); Entamoeba histolytica Not Detected (NotDetected); Enteroaggregative E coli Not Detected (NotDetected); Enteropathogenic E coli Not Detected (NotDetected); Enterotoxigenic E coli Not Detected (NotDetected); Giardia lamblia Not Detected (NotDetected); Norovirus Not Detected (NotDetected); Plesimonas Shigalloides, PCR Not Detected (NotDetected); Rotavirus A Not Detected (NotDetected); Salmonella, PCR Not Detected (NotDetected); Sapovirus Not Detected (NotDetected); Shiga-like toxin E coli Not Detected (NotDetected); Shigella Enterovasive E coli Not Detected (NotDetected); Vibrio Cholerae Not Detected (NotDetected); Vibrio, PCR Not Detected (NotDetected); Yersinia Entercolitica, PCR Not Detected (NotDetected)
[2024-07-16] MEDS: LACTATED RINGERS 1000ML 1,000 ML 125 ML IV (05:39)
[2024-07-16 06:50] LABS: Basophils # 0.1 K/mm3 (0-0.2); Basophils % 0.4 % (0.1-2.0); Eosinophils % 0.2 % (0.1-12.0); Hematocrit 37.9 % (37.0-47.0); Hemoglobin 12.1 g/dL (12.2-16.2); Immature Granulocytes # 0.13 10^3uL; Immature Granulocytes % 0.9 %; Lymphocytes # 0.8 K/mm3 (0.7-4.5); Lymphocytes % 5.6 % (10-50); Mean Corpuscular HGB Conc 31.9 g/dL (31.8-35.4); Mean Corpuscular Hemoglobin 30.2 pg (27.0-31.2); Mean Corpuscular Volume 94.5 fl (81-99); Mean Platelet Volume 12.5 fl (7.4-10.4); Monocytes # 0.7 K/mm3 (0.1-1.0); Monocytes % 4.9 % (1.7-9.3); Neutrophils # 12.2 K/mm3 (1.8-7.8); Nucleated Red Blood Cells # 0 10^3/uL; Nucleated Red Blood Cells % 0 %; Platelet Count 132 K/mm3 (142-424); Red Blood Count 4.01 M/mm3 (4.20-5.40); Red Cell Distribution Width 13.8 % (11.5-17.5); Red Cell Distribution Width-SD 47.9 fL; White Blood Count 13.8 K/mm3 (4.8-10.8)
[2024-07-16 07:13] LABS: Albumin Level 3.6 g/dl (3.5-5.0); Chloride 108 mmol/L (98-107); Potassium 3.7 mmoL/L (3.5-5.1); Sodium 136 mmol/L (136-145)
[2024-07-16 07:16] LABS: Alanine Aminotransferase 40 U/L (12-78); Albumin/Globulin Ratio 1.2 (1.1-1.8); Alkaline Phosphatase 87 U/L (38-126); Anion Gap 13.7 mEq/L (5-15); Aspartate Amino Transferase 68 U/L (14-36); Bilirubin,Total 0.5 mg/dl (0.2-1.3); Blood Urea Nitrogen 19 mg/dl (7-17); Calcium 8.6 mg/dl (8.4-10.2); Carbon Dioxide 18 mmol/L (22.0-30.0); Creatinine Clearance Estimated 75 mL/min (50-200); Estimated Glomerular Filt Rate 62 ml/min (>60); GFR (African American) 75 ML/MIN (>60); Globulin 3.1 g/dL (1.3-3.2); Glucose 114 mg/dl (74-100); Total Protein,Serum 6.7 g/dl (6.3-8.2)
[2024-07-16 07:17] LABS: Magnesium 1.9 mg/dl (1.6-2.3)
[2024-07-16 08:00] VITALS: BP 172/79; PULSE 91; RESP 16; TEMP 37.7; O2SAT 98
[2024-07-16 08:36] LABS: Lactic Acid 2.5 mmol/L (0.7-2.1)
[2024-07-16 08:39] LABS: Erythrocyte Sedimentation Rate 134 mm/hr (0-30)
[2024-07-16 08:45] LABS: Procalcitonin 7.09 ng/mL (0.0-2.0)
--- NOTE | 2024-07-16 08:54 | PC.NURSE ---
let nurse know about elevated vital signs
[2024-07-16 09:34] LABS: C-Reactive Protein 348.9 mg/L (0-4)
[2024-07-16] MEDS: ACETAMINOPHEN 325MG TAB 650 MG PO (10:04)
--- NOTE | 2024-07-16 10:07 | PC.NURSE ---
INTAKE FROM MULTIPLE SHIFTS
[2024-07-16 11:25] VITALS: BP 141/75; PULSE 84; RESP 17; TEMP 37.9; O2SAT 95
--- NOTE | 2024-07-16 11:26 | PC.NURSE ---
nurse is aware of elevated temp
[2024-07-16 12:15] LABS: Reflex Lactic Add Lactic Reflex
[2024-07-16 12:45] LABS: Lactic Acid Follow Up (RFLX 1) 0.9 mmol/L (0.7-2.1)
--- NOTE | 2024-07-16 14:43 | P.DS_ITS ---
General Admission date:: 07/15/24 HPI HPI HPI: This 69-year-old female who actually looks younger than her stated age, has been ill now for 3 days with watery diarrhea and some vomiting yesterday., Feeling very weak having trouble with walking at this time. Elevated white count, has not been able to give a diarrheal stool since being here so do not have a culture done yet. But patient appears awake alert oriented while laying in bed but on standing just is too weak to move so do not feel comfortable sending her at home until we get her fluid balance squared away. There is very little about her in her chart but per her has had no significant medical issues for quite some time. Medical history includes a tubal with the oophorectomy and removal of the tube on the right side as many years ago. In examining the CT of the abdomen the right kidney has a dilation of the ureter for at least 5 cm looks to be 2 to 3 cm at its largest point.(HYDRRETER), no other significant abdominal findings were noted At the present time believe this is simply infectious diarrhea but the patient has reached a point of not been able to stand well or walk well may need rehab hydration so IV fluids will be applied. Will add Pepto-Bismol and keep on clear liquid diet advanced as tolerated. Hopefully with improvement will have the patient home within 24 to 48 hours at the most. After talking with the ER provider patient showing signs of possible urinary tract infection elevated white count with weakness and unsteady gait back pain diarrhea and some abdominal pain. Also noting elevation in creatinine on labs. Hospital Course Hospital Course Hospital Course: Rosita Lopez is a 69-year-old female who presented with weakness in the setting of nausea/vomiting/diarrhea and was admitted for the same. #Nausea/vomiting/diarrhea #Weakness #UTI #Gastroenteritis ? Clinically improved with IV fluid resuscitation and levofloxacin. Urine culture still pending. ? No longer having diarrhea. Diarrhea panel also negative. ? Renal function stable, at baseline. ? Discharged with levofloxacin for 4 more days. For UTI Exam Data for Last 24 hours Vital signs and Labs for Last 24 Hours: Temp Pulse Resp BP Pulse Ox O2 Del Method 100.2 F H 84 17 141/75 H 95 Room Air 07/16/24 11:25 07/16/24 11:25 07/16/24 11:07/16/24 11:07/16/24 11:25 07/16/24 13:00 Laboratory Results - last 24 hr 07/15/24 17:31: WBC 15.5 H, RBC 4.03 L, Hgb 12.4, Hct 37.2, MCV 92.3, MCH 30.8, MCHC 33.3, RDW 13.6, Plt Count 251, MPV 10.8 H, Neut % (Auto) 89.6 H, Lymph % (Auto) 4.4 L, Clarke % (Auto) 3.8, Eos % (Auto) 0.6, Baso % (Auto) 0.4, Neut # (Auto) 13.9 H, Lymph # (Auto) 0.7, Clarke # (Auto) 0.6, Eos # (Auto) 0.1, Baso # (Auto) 0.1, ESR 56 H, Sodium 134 L, Potassium 3.2 L, Chloride 102, Carbon Dioxide 17 L, Anion Gap 18.2 H, BUN 24 H, Creatinine 1.30 H, Estimated Creat Clear 46, Estimated GFR 41 L, Est GFR ( Amer) 49 L, Glucose 124 H, Lactate 1.5, Calcium 9.5, Magnesium 2.1, Total Bilirubin 0.8, AST 46 H, ALT 33, Alkaline Phosphatase 70, C-Reactive Protein 426.6 H, Total Protein 8.2, Albumin 4.3, Globulin 3.9 H, Albumin/Globulin Ratio 1.1, Lipase 53, Procalcitonin 6.55 H , HCV Ab JOESPH w/Rflx PCR Qn Negative, HIV Ag/Ab Combo Qual Negative 07/15/24 19:37: Urine Color Yellow, Urine Appearance Slightly cloudy, Urine pH 6.0, Ur Specific [place] 1.020, Urine Protein 2+ A, Urine Glucose (UA) Negative, Urine Ketones 1+, Urine Blood 2+ A, Urine Nitrate Negative, Urine Bilirubin Negative, Urine Urobilinogen 0.2, Ur Leukocyte Esterase Negative, Urine RBC 5- 10, Urine WBC 5-10, Ur Squamous Epith Cells 20-50, Amorphous Sediment 2+, Urine Bacteria 4+ 07/16/24 04:30: Stl C. cayetanensis PCR Not detected, Stool Rotavirus (PCR) Not detected, Stl Adenov F 40/41 PCR Not detected, Stool Astrovirus (PCR) Not detected, Stool Campylobacter PCR Not detected, Stl C.difficile Tox PCR Not detected, Stool Cryptosporidium PCR Not detected, Stl E.coli Shiga Tox PCR Not detected, Stool E coli O157 PCR Not detected, Stl Enterotoxigenic E PCR Not detected, Stool EPEC (PCR) Not detected, Stool EAEC (PCR) Not detected, Stl E. histolytica PCR Not detected, Stool Giardia Lamblia PCR Not detected, Stool Salmonella PCR Not detected, Stool Sapovirus (PCR) Not detected, Stl P. shigelloides PCR Not detected, Stl Shigella/EIEC PCR Not detected, St Y.enterocolitica PCR Not detected, Stool Vibrio (PCR) Not detected, Stl Vibrio cholerae PCR Not detected, Stl Norovirus GI/GII PCR Not detected 07/16/24 06:24: WBC 13.8 H, RBC 4.01 L, Hgb 12.1 L, Hct 37.9, MCV 94.5, MCH 30.2, MCHC 31.9, RDW 13.8, Plt Count 132 L D, MPV 12.5 H, Neut % (Auto) 88.0 H, Lymph % (Auto) 5.6 L, Clarke % (Auto) 4.9, Eos % (Auto) 0.2, Baso % (Auto) 0.4, Neut # (Auto) 12.2 H, Lymph # (Auto) 0.8, Clarke # (Auto) 0.7, Eos # (Auto) 0.0, Baso # (Auto) 0.1, Sodium 136, Potassium 3.7, Chloride 108 H, Carbon Dioxide 18 L, Anion Gap 13.7, BUN 19 H, Creatinine 0.90 D, Estimated Creat Clear 75, Estimated GFR 62, Est GFR ( Amer) 75 D, Glucose 114 H, Calcium 8.6, Magnesium 1.9, Total Bilirubin 0.5, AST 68 H D, ALT 40, Alkaline Phosphatase 87, Total Protein 6.7, Albumin 3.6 D, Globulin 3.1, Albumin/Globulin Ratio 1.2 07/16/24 08:10: ESR 134 H, Lactate 2.5 H, C-Reactive Protein 348.9 H, Procalcitonin 7.09 H 07/16/24 12:28: Lactate 0.9 I & O for Last 24 hours: Intake & Output 07/13/24 07/14/24 07/15/24 07/16/24 23:59 23:59 23:59 23:59 Intake Total 2568 / 2568 Output Total 350 / 350 Balance 2218 / 2218 Weight 86.409 kg 87.679 kg Constitutional Constitutional: no acute distress and obese *Routine HEENT Exam Head: Present normocephalic Eye: Present EOMI and PERRL ENT: Present mucous membranes moist *Routine Neck Exam Neck: Present supple; Absent lymphadenopathy *Routine Respiratory Exam Respiratory: Present CTA bilaterally *Routine Cardiovascular Exam Cardiovascular: Present RRR *Routine Abdominal Exam Abdominal: Present soft and normoactive bowel sounds; Absent tenderness *Routine Extremities Exam Extremities: Absent cyanosis, clubbing or edema *Routine Skin Exam Skin: Present warm; Absent rash *Routine Neurological Exam Neurological: Present alert and oriented X3 Results Data Completed and Pending Labs on day of discharge: Labs from last 24 hours 07/16/24 07/16/24 07/16/24 12:28 08:10 06:24 WBC 13.8 H RBC 4.01 L Hgb 12.1 L Hct 37.9 MCV 94.5 MCH 30.2 MCHC 31.9 RDW 13.8 Plt Count 132 L D MPV 12.5 H Neut % (Auto) 88.0 H Lymph % (Auto) 5.6 L Clarke % (Auto) 4.9 Eos % (Auto) 0.2 Baso % (Auto) 0.4 Neut # (Auto) 12.2 H Lymph # (Auto) 0.8 Clarke # (Auto) 0.7 Eos # (Auto) 0.0 Baso # (Auto) 0.1 ESR 134 H Sodium 136 Potassium 3.7 Chloride 108 H Carbon Dioxide 18 L Anion Gap 13.7 BUN 19 H Creatinine 0.90 D Estimated Creat Clear 75 Estimated GFR 62 Est GFR ( Amer) 75 D Glucose 114 H Lactate 0.9 2.5 H Calcium 8.6 Magnesium 1.9 Total Bilirubin 0.5 AST 68 H D ALT 40 Alkaline Phosphatase 87 C-Reactive Protein 348.9 H Total Protein 6.7 Albumin 3.6 D Globulin 3.1 Albumin/Globulin Ratio 1.2 Lipase Procalcitonin 7.09 H Urine Color Urine Appearance Urine pH Ur Specific [place] Urine Protein Urine Glucose (UA) Urine Ketones Urine Blood Urine Nitrate Urine Bilirubin Urine Urobilinogen Ur Leukocyte Esterase Urine RBC Urine WBC Ur Squamous Epith Cells Amorphous Sediment Urine Bacteria Stl C. cayetanensis PCR Stool Rotavirus (PCR) Stl Adenov F 40 PCR Stool Astrovirus (PCR) Stool Campylobacter PCR Stl C.difficile Tox PCR Stool Cryptosporidium PCR Stl E.coli Shiga Tox PCR Stool E coli O157 PCR Stl Enterotoxigenic E PCR Stool EPEC (PCR) Stool EAEC (PCR) Stl E. histolytica PCR Stool Giardia Lamblia PCR Stool Salmonella PCR Stool Sapovirus (PCR) Stl P. shigelloides PCR Stl Shigella/EIEC PCR St Y.enterocolitica PCR Stool Vibrio (PCR) Stl Vibrio cholerae PCR Stl Norovirus GI/GII PCR HCV Ab JOESPH w/Rflx PCR Qn HIV Ag/Ab Combo Qual 07/16/24 07/15/24 07/15/24 04:30 19:37 17:31 WBC 15.5 H RBC 4.03 L Hgb 12.4 Hct 37.2 MCV 92.3 MCH 30.8 MCHC 33.3 RDW 13.6 Plt Count 251 MPV 10.8 H Neut % (Auto) 89.6 H Lymph % (Auto) 4.4 L Clarke % (Auto) 3.8 Eos % (Auto) 0.6 Baso % (Auto) 0.4 Neut # (Auto) 13.9 H Lymph # (Auto) 0.7 Clarke # (Auto) 0.6 Eos # (Auto) 0.1 Baso # (Auto) 0.1 ESR 56 H Sodium 134 L Potassium 3.2 L Chloride 102 Carbon Dioxide 17 L Anion Gap 18.2 H BUN 24 H Creatinine 1.30 H Estimated Creat Clear 46 Estimated GFR 41 L Est GFR ( Amer) 49 L Glucose 124 H Lactate 1.5 Calcium 9.5 Magnesium 2.1 Total Bilirubin 0.8 AST 46 H ALT 33 Alkaline Phosphatase 70 C-Reactive Protein 426.6 H Total Protein 8.2 Albumin 4.3 Globulin 3.9 H Albumin/Globulin Ratio 1.1 Lipase 53 Procalcitonin 6.55 H Urine Color Yellow Urine Appearance Slightly cloudy Urine pH 6.0 Ur Specific [place] 1.020 Urine Protein 2+ A Urine Glucose (UA) Negative Urine Ketones 1+ Urine Blood 2+ A Urine Nitrate Negative Urine Bilirubin Negative Urine Urobilinogen 0.2 Ur Leukocyte Esterase Negative Urine RBC 5-10 Urine WBC 5-10 Ur Squamous Epith Cells 20-50 Amorphous Sediment 2+ Urine Bacteria 4+ Stl C. cayetanensis PCR Not detected Stool Rotavirus (PCR) Not detected Stl Adenov F 40/41 PCR Not detected Stool Astrovirus (PCR) Not detected Stool Campylobacter PCR Not detected Stl C.difficile Tox PCR Not detected Stool Cryptosporidium PCR Not detected Stl E.coli Shiga Tox PCR Not detected Stool E coli O157 PCR Not detected Stl Enterotoxigenic E PCR Not detected Stool EPEC (PCR) Not detected Stool EAEC (PCR) Not detected Stl E. histolytica PCR Not detected Stool Giardia Lamblia PCR Not detected Stool Salmonella PCR Not detected Stool Sapovirus (PCR) Not detected Stl P. shigelloides PCR Not detected Stl Shigella/EIEC PCR Not detected St Y.enterocolitica PCR Not detected Stool Vibrio (PCR) Not detected Stl Vibrio cholerae PCR Not detected Stl Norovirus GI/GII PCR Not detected HCV Ab JOESPH w/Rflx PCR Qn Negative HIV Ag/Ab Combo Qual Negative DS: Diagnosis Discharge Diagnosis (1) Enteritis: Status: Acute Code(s): K52.9 - Noninfective gastroenteritis and colitis, unspecified (2) Nausea vomiting and diarrhea: Status: Acute Code(s): R11.2 - Nausea with vomiting, unspecified; R19.7 - Diarrhea, unspecified (3) Sepsis without septic shock: Status: Acute Code(s): A41.9 - Sepsis, unspecified organism (4) Dehydration: Status: Acute Code(s): E86.0 - Dehydration (5) Urinary tract infection in female: Status: Acute Code(s): N39.0 - Urinary tract infection, site not specified (6) Hydroureter on right: Status: Acute Code(s): N13.4 - Hydroureter Meds Home Medications and Allergies Home Medications ?Medication ?Instructions ?Recorded ?Confirmed ?Type No Known Home Medications 07/24/2407/14 History New Prescriptions to Start Prescriptions: Allergies Allergy/AdvReac Type Severity Reaction Status Date / Time Penicillins Allergy Verified 07/24/24 13:27 Sulfa (Sulfonamide Allergy Verified 07/24/24 13:27 Antibiotics) Discharge Plan Disposition Patient Disposition: Home, Self-Care Condition: Fair Follow up Plan Follow up with: Cortney Valle APRN [Primary Care Provider, [facility]] - 07/24/24 1:20 pm Prescriptions/Medication Reconciliation: No Action No Known Home Medications Problem Reconciliation Problems Reviewed?: Yes Patient Discharge Instructions Patient Instructions: DI for Urinary Tract Infection (UTI), DI for Nausea -- Adult, DI for Vomiting -- Adult, DI for Colitis, Stop Light Infection Print Language: Citizen Of [place] Providers Primary Care Provider: Cortney Valle Admit Provider: Jake Rodriguez Attending Provider: Jake Rodriguez
--- NOTE | 2024-07-17 10:00 | SW/DCPLANNER ---
Spoke with patient on the phone. Patient stated that she is feeling a little better just gets very tired easy. Patient stated that she is aware of her upcoming appointment. Patient stated that her son was able to pick pulling machine tender her new medicine from [employer]. Patient stated that she would like to know if she needs to continue the bland diet that she was on and no where in the DC plan did it say to continue. Patient stated that she has no other concerns or questions at this time. Rosalina Prieto
--- NOTE | 2024-07-17 10:43 | PC.NURSE ---
Urine culture results sent to hospitalist.
== END 2024-07-16 15:05 | disposition home or self-care (01) ==
LOC: ER 20:22 → 2ND 21:11
PROVIDERS: Nurse Practitioner Family; Physician Assistant; Student in an Organized Health Care Education/Training Program; Admitting Provider Internal Medicine Adolescent Medicine; Emergency Provider Emergency Medicine; PCP Family Medicine; Visit Provider Internal Medicine Adolescent Medicine
DX: A41.9 Sepsis, unspecified organism (principal); K52.9 Noninfective gastroenteritis and colitis, unspecified; N39.0 Urinary tract infection, site not specified; E86.0 Dehydration; Z87.891 Personal history of nicotine dependence
CPT/HCPCS: 96361; 96374; 96375 ×3; 36415; 74177; 80053; 81001; 83605; 83690; 83735; 84145; 85025; 85651; 86140; 86803; 87040; 87086; 87389; 87507; 93005; G0378; J0131; J0696; J1885; J2405; J7030; J7120; Q9967

== ENCOUNTER 2024-07-24 14:20 | Outpatient (CLI) | payer MEDICARE, SELFPAY ==
[2024-07-24 18:35] LABS: Basophils % 0.5 % (0.1-2.0); Eosinophils # 0.1 Kmm3 (0.0-0.4); Eosinophils % 1.8 % (0.1-12.0); Hematocrit 36.2 % (37.0-47.0); Hemoglobin 11.8 g/dL (12.2-16.2); Immature Granulocytes # 0.04 10^3uL; Immature Granulocytes % 0.5 %; Lymphocytes % 26.8 % (10-50); Mean Corpuscular HGB Conc 32.6 g/dL (31.8-35.4); Mean Corpuscular Hemoglobin 30.3 pg (27.0-31.2); Mean Corpuscular Volume 92.8 fl (81-99); Mean Platelet Volume 10.1 fl (7.4-10.4); Monocytes # 0.9 K/mm3 (0.1-1.0); Monocytes % 11.9 % (1.7-9.3); Neutrophils # 4.3 K/mm3 (1.8-7.8); Neutrophils % 58.5 % (37.0-80.0); Nucleated Red Blood Cells # 0 10^3/uL; Nucleated Red Blood Cells % 0 %; Platelet Count 538 K/mm3 (142-424); Red Cell Distribution Width 13.9 % (11.5-17.5); Red Cell Distribution Width-SD 47.6 fL; White Blood Count 7.4 K/mm3 (4.8-10.8)
[2024-07-24 19:01] LABS: Alanine Aminotransferase 72 U/L (12-78); Albumin Level 3.6 g/dl (3.5-5.0); Albumin/Globulin Ratio 1.4 (1.1-1.8); Alkaline Phosphatase 86 U/L (38-126); Anion Gap 8.2 mEq/L (5-15); Aspartate Amino Transferase 45 U/L (14-36); Bilirubin,Total 0.5 mg/dl (0.2-1.3); Blood Urea Nitrogen 12 mg/dl (7-17); Carbon Dioxide 30 mmol/L (22.0-30.0); Chloride 101 mmol/L (98-107); Chol/HDL Ratio 5.4 (1-3.5); Cholesterol 193 mg/dl (140-200); Estimated Glomerular Filt Rate 71 ml/min (>60); GFR (African American) 86 ML/MIN (>60); Globulin 2.6 g/dL (1.3-3.2); Glucose 102 mg/dl (74-100); HDL Cholesterol 36 mg/dl (40-60); Potassium 3.2 mmoL/L (3.5-5.1); Sodium 136 mmol/L (136-145); Total Protein,Serum 6.2 g/dl (6.3-8.2); Triglycerides 112 mg/dl (30-150); VLDL Cholesterol 22 mg/dL (0-40)
[2024-07-24 19:12] LABS: Hemoglobin A1C 5.5 % (4.0-6.0)
[2024-07-24 19:20] LABS: 25-OH Vitamin D, Total 53.5 ng/mL (30-100)
[2024-07-24 19:34] LABS: Thyroid Stimulating Hormone 0.35 uIU/mL (0.465-4.68)
== END 2024-07-24 23:59 | disposition home or self-care (01) ==
LOC: LAB.DROPOF 07-25 10:15
PROVIDERS: PCP Family Medicine; Visit Provider Family Medicine
DX: R73.03 Prediabetes (principal); R53.83 Other fatigue; E55.9 Vitamin D deficiency, unspecified
CPT/HCPCS: 80053; 80061; 82306; 83036; 84443; 85025

== ENCOUNTER 2024-09-02 17:58 | Outpatient (CLI) | payer MEDICARE, SELFPAY ==
[2024-09-02 19:32] LABS: Hematocrit 40.4 % (37.0-47.0); Hemoglobin 13.1 g/dL (12.2-16.2); Immature Granulocytes % 0.2 %; Mean Corpuscular HGB Conc 32.4 g/dL (31.8-35.4); Mean Corpuscular Hemoglobin 30.6 pg (27.0-31.2); Mean Corpuscular Volume 94.4 fl (81-99); Nucleated Red Blood Cells % 0 %; Platelet Count 252 K/mm3 (142-424); Red Blood Count 4.28 M/mm3 (4.20-5.40); Red Cell Distribution Width-SD 49.0 fL; White Blood Count 6.5 K/mm3 (4.8-10.8)
[2024-09-02 19:52] LABS: Albumin Level 4.6 g/dl (3.5-5.0); Chloride 103 mmol/L (98-107); Sodium 137 mmol/L (136-145)
[2024-09-02 19:53] LABS: Potassium 4.0 mmoL/L (3.5-5.1)
[2024-09-02 19:55] LABS: Alanine Aminotransferase 22 U/L (12-78); Albumin/Globulin Ratio 1.7 (1.1-1.8); Alkaline Phosphatase 76 U/L (38-126); Anion Gap 15.0 mEq/L (5-15); Aspartate Amino Transferase 29 U/L (14-36); Bilirubin,Total 0.9 mg/dl (0.2-1.3); Blood Urea Nitrogen 11 mg/dl (7-17); Carbon Dioxide 23 mmol/L (22.0-30.0); Creatinine,Serum 0.80 mg/dl (0.52-1.04); Estimated Glomerular Filt Rate 71 ml/min (>60); GFR (African American) 86 ML/MIN (>60); Globulin 2.7 g/dL (1.3-3.2); Total Protein,Serum 7.3 g/dl (6.3-8.2)
[2024-09-02 19:56] LABS: Calcium 9.5 mg/dl (8.4-10.2); Glucose 106 mg/dl (74-100)
[2024-09-02 20:11] LABS: Triiodothryronine (T3) Uptake 37 % (23.5-40.5)
[2024-09-02 20:12] LABS: Free Thyroxine Index 2.0 ug/dL (5.93-13.13); T4 (Thyroxine) 5.4 ug/dl (5.53-11.0)
[2024-09-02 20:26] LABS: Thyroid Stimulating Hormone 0.74 uIU/mL (0.465-4.68)
== END 2024-09-02 23:59 | disposition home or self-care (01) ==
LOC: LAB 17:58
PROVIDERS: PCP Family Medicine; Visit Provider Family Medicine
DX: E86.0 Dehydration (principal); K52.9 Noninfective gastroenteritis and colitis, unspecified; E05.90 Thyrotoxicosis, unspecified without thyrotoxic crisis or storm
CPT/HCPCS: 80053; 84436; 84443; 84479; 85025

== ENCOUNTER 2024-12-02 10:13 | Outpatient (CLI) | payer MEDICARE, SELFPAY ==
--- NOTE | 2024-12-02 10:30 | MM_ITS ---
PROCEDURE INFORMATION: Exam: Bilateral Screening 3D Mammography Exam date and time: 12/02/2024 10:33 AM Age: 69 years old Clinical indication: Screening examination TECHNIQUE: Imaging protocol: Bilateral Screening tomosynthesis and 2D mammography including computer-aided detection (CAD) when performed. COMPARISON: 1. MG DMDXUL DIG MAMM-DX UNI-LT 07/17/2012 2:48 PM 2. MG DMSB DIGITAL MAMM-SCREEN BILATERAL 01/04/2012 4:47 PM FINDINGS: MAMMOGRAPHY: Breast composition: There are scattered areas of fibroglandular density. Mass: No suspicious masses. Architectural distortion: None. Calcifications: No suspicious calcifications. Asymmetric density: None. Skin thickening: None. Axillary adenopathy: None. IMPRESSION: No mammographic evidence of malignancy. Annual screening is recommended unless otherwise clinically indicated. ASSESSMENT: BI-RADS Category 1: Negative.
== END 2024-12-02 23:59 | disposition home or self-care (01) ==
LOC: RAD 10:14
PROVIDERS: PCP Family Medicine; Visit Provider Family Medicine
DX: Z12.31 Encounter for screening mammogram for malignant neoplasm of breast (principal); R92.323 Mammographic fibroglandular density, bilateral breasts
CPT/HCPCS: 77063; 77067